=== PATIENT | male | born 1970 | race Caucasian/White ===

== ENCOUNTER 2018-12-10 19:09 | Observation (INO) ==
[2018-12-10] MEDS ORDERED: Nitroglycerin 0.4 MG TAB.SUBL SL STA (19:32)
[2018-12-10 20:07] LABS: Basophils % 0.3 %; Eosinophils # 0.1 K/mcL (0.0-0.6); Eosinophils % 0.6 %; Hemoglobin 13.7 g/dL (12.9-16.9); Immature Granulocytes % 0.3 % (0-4); Lymphocytes % 21.1 %; Mean Corpuscular HGB Conc 33.4 g/dL (31.6-35.5); Mean Corpuscular Hemoglobin 28.5 pg (28.0-33.3); Mean Corpuscular Volume 85.4 fL (83.0-100.0); Mean Platelet Volume 9.9 fL (9.4-12.4); Monocytes # 0.6 K/mcL (0.0-1.3); Monocytes % 5.8 %; Neutrophils # 6.8 K/mcL (1.6-8.9); Platelet Count 199 K/mcL (140-400); Red Cell Distribution Width 14.6 % (11.5-14.5); Segmented Neutrophils % 71.9 %; White Blood Count 9.4 K/mcL (4.3-11.1)
[2018-12-10 20:25] LABS: BUN/Creatinine Ratio 6 (6-26); Blood Urea Nitrogen 5 mg/dL (6-20); Calcium 8.9 mg/dL (8.6-10.3); Carbon Dioxide 27 mEq/L (23-29); Chloride 103 mEq/L (98-107); Glucose 123 mg/dL (70-105); Osmolality,Calculated 285 (280-300); Potassium 3.4 mEq/L (3.5-5.1); Sodium 138 mEq/L (136-145); Troponin I < 0.03 ng/mL (< 0.04); eGFR For African Americans > 60 (> 60); eGFR For Non-African Americans > 60 (> 60)
[2018-12-10] MEDS ORDERED: Nicotine 21 MG PATCH.TD24 TD STA (21:03)
[2018-12-10] MEDS ORDERED: Naloxone 0.4 MG/ML INJ IVP PRN (22:56)
[2018-12-10] MEDS ORDERED: Nicotine 21 MG PATCH.TD24 TD PRN (23:01)
[2018-12-10] MEDS ORDERED: Nitroglycerin 0.4 MG TAB.SUBL SL PRN (23:01)
[2018-12-10] MEDS: 0.9 % Sodium Chloride 1,000 ML IVC SCH (23:37)
[2018-12-11 02:43] LABS: Hematocrit 40.3 % (37.5-50.1); Hemoglobin 13.3 g/dL (12.9-16.9); Mean Corpuscular Hemoglobin 28.5 pg (28.0-33.3); Mean Corpuscular Volume 86.5 fL (83.0-100.0); Mean Platelet Volume 10.1 fL (9.4-12.4); Platelet Count 176 K/mcL (140-400); Red Blood Count 4.66 M/mcL (4.19-5.50); Red Cell Distribution Width 14.6 % (11.5-14.5); White Blood Count 9.4 K/mcL (4.3-11.1)
[2018-12-11 03:00] LABS: BUN/Creatinine Ratio 7 (6-26); Blood Urea Nitrogen 6 mg/dL (6-20); Calcium 8.7 mg/dL (8.6-10.3); Carbon Dioxide 25 mEq/L (23-29); Chloride 105 mEq/L (98-107); Glucose 176 mg/dL (70-105); Osmolality,Calculated 288 (280-300); Potassium 3.4 mEq/L (3.5-5.1); Sodium 138 mEq/L (136-145); eGFR For African Americans > 60 (> 60); eGFR For Non-African Americans > 60 (> 60)
[2018-12-11] MEDS ORDERED: *HR* Heparin 5,000 UNIT/ML VIAL SQ SCH (06:00)
[2018-12-11] MEDS: 0.9 % Sodium Chloride 1,000 ML IVC SCH (09:22)
[2018-12-11] MEDS ORDERED: MethylPREDNISolone 40 MG/ML VIAL IVP SCH (09:55)
[2018-12-11 10:54] VITALS: BP 139/90
[2018-12-11] MEDS: Ipratropium/Albuterol Neb 3 ML IH SCH ×2 (11:03→11:07)
== END 2018-12-11 12:28 | disposition home or self-care (01) ==
LOC: EMEROOARM 19:09 → 3BNU 19:09 → SUATTDRO 20:46 → 3BNU 21:25
PROVIDERS: ADMIT Family Medicine; ATTEND Family Medicine

== ENCOUNTER 2021-03-25 00:07 | Observation (INO) ==
[2021-03-25] MEDS ORDERED: Isovue-370 500 ML BOTTLE IVP ONE (00:18)
[2021-03-25 00:40] LABS: Prothrombin Time 11.4 Seconds (9.4-12.1)
[2021-03-25 00:42] LABS: Activated Partial Thrombo Time 38.4 Seconds (26.0-36.0)
[2021-03-25 00:47] LABS: Hematocrit 43.2 % (37.5-50.1); Hemoglobin 14.3 g/dL (12.9-16.9); Mean Corpuscular HGB Conc 33.1 g/dL (31.6-35.5); Mean Corpuscular Hemoglobin 28.6 pg (28.0-33.3); Mean Corpuscular Volume 86.4 fL (83.0-100.0); Mean Platelet Volume 10.1 fL (9.4-12.4); Platelet Count 192 K/mcL (140-400); Red Cell Distribution Width 14.9 % (11.5-14.5); White Blood Count 8.2 K/mcL (4.3-11.1)
[2021-03-25 01:03] LABS: BUN/Creatinine Ratio 9 (6-26); Blood Urea Nitrogen 8 mg/dL (6-20); Calcium 9.1 mg/dL (8.6-10.3); Carbon Dioxide 26 mEq/L (23-29); Chloride 102 mEq/L (98-107); Creatine Kinase 120 Units/L (30-223); Ethanol < 10 mg/dL (Less than 10); Glucose 135 mg/dL (70-105); Osmolality,Calculated 280 (280-300); Potassium 3.6 mEq/L (3.5-5.1); Sodium 135 mEq/L (136-145); Troponin I < 0.03 ng/mL (< 0.04); eGFR For African Americans > 60 (> 60); eGFR For Non-African Americans > 60 (> 60)
[2021-03-25] MEDS ORDERED: Aspirin 325 MG TABLET PO ONE (01:33)
[2021-03-25] MEDS ORDERED: Acetaminophen 325 MG TABLET PO PRN (03:30)
[2021-03-25] MEDS ORDERED: Nicotine 2 MG GUM BC PRN (03:32)
[2021-03-25] MEDS ORDERED: Gadolinium Contrast Agent (WT Based) IV PRN (03:33)
[2021-03-25] MEDS ORDERED: Perflutren Lipid Microsphere 1.3 ML in 0.9 % Sodium Chloride 8.7 ML IVP PRN (03:33)
[2021-03-25] MEDS ORDERED: Nicotine 21 MG PATCH.TD24 TD SCH (03:45)
[2021-03-25 05:25] LABS: Hematocrit 41.1 % (37.5-50.1); Hemoglobin 13.9 g/dL (12.9-16.9); Mean Corpuscular HGB Conc 33.8 g/dL (31.6-35.5); Mean Corpuscular Hemoglobin 29.3 pg (28.0-33.3); Mean Corpuscular Volume 86.7 fL (83.0-100.0); Mean Platelet Volume 10.7 fL (9.4-12.4); Platelet Count 192 K/mcL (140-400); Red Blood Count 4.74 M/mcL (4.19-5.50); White Blood Count 10.9 K/mcL (4.3-11.1)
[2021-03-25 05:44] LABS: Magnesium 1.9 mg/dL (1.6-2.6); Phosphorous 3.4 mg/dL (2.7-4.5)
[2021-03-25 05:45] LABS: Alanine Aminotransferase 16 Units/L (7-52); Albumin 3.7 g/dL (3.5-5.7); Albumin/Globulin Ratio 1.3 (1.1-2.2); Alkaline Phosphatase 54 Units/L (34-104); Aspartate Amino Transferase 10 Units/L (13-39); BUN/Creatinine Ratio 9 (6-26); Bilirubin,Total 0.3 mg/dL (0.3-1.0); Blood Urea Nitrogen 8 mg/dL (6-20); Calcium 8.8 mg/dL (8.6-10.3); Carbon Dioxide 25 mEq/L (23-29); Chloride 102 mEq/L (98-107); Cholesterol 232 mg/dL (< 200); Globulin 2.8 g/dL (2.4-3.5); Glucose 176 mg/dL (70-105); HDL Cholesterol 33 mg/dL (40-59); LDL Cholesterol,Calculated 167 mg/dL (< 100); Osmolality,Calculated 283 (280-300); Potassium 3.4 mEq/L (3.5-5.1); Prothrombin Time 11.3 Seconds (9.4-12.1); Sodium 135 mEq/L (136-145); Total Protein 6.5 g/dL (6.4-8.9); Triglycerides 161 mg/dL (< 150); eGFR For African Americans > 60 (> 60); eGFR For Non-African Americans > 60 (> 60)
[2021-03-25] MEDS ORDERED: *HR* OxyCODONE/APAP 5/325 TABLET PO PRN (06:00)
[2021-03-25 07:02] VITALS: BP 111/64; PULSE 65; TEMP 98.5; O2SAT 96
[2021-03-25 08:05] LABS: Estimated Average Glucose 157 mg/dl; Hemoglobin A1C 7.1 %
[2021-03-26] MEDS ORDERED: Aspirin 81 MG TAB.CHEW PO SCH (09:00)
== END 2021-03-25 10:03 | disposition left against medical advice (07) ==
LOC: 2ANU 00:07 → EMEROOARM 00:07 → SUATTDRO 02:04 → 2ANU 03:27
PROVIDERS: ADMIT Internal Medicine; ATTEND Internal Medicine